=== PATIENT | female | born 2000 | race Caucasian/White ===

== ENCOUNTER 2023-04-09 14:57 | Outpatient (CLI) | payer OTHER, SELFPAY ==
--- NOTE | ~2023-04-09 | XR_ITS ---
EXAMINATION: XR chest 2V DATE: 04/09/2023 15:09 INDICATION: Cough TECHNIQUE: frontal and lateral views of the chest were obtained. COMPARISON: None FINDINGS: The lungs are clear with no focal airspace opacities, pulmonary edema, pleural effusion or pneumothor ax. The cardiomediastinal silhouette is normal. Visualized bones and soft tissues are unremarkable. IMPRESSION: 1. No acute cardiopulmonary disease. Reviewed, dictated and finalized at location A. EMIOLOGIST
== END 2023-04-09 14:58 ==
LOC: MICIMG 15:01
PROVIDERS: PCP Family Medicine; Visit Provider Family Medicine
DX: R05.9 Cough, unspecified (principal)
CPT/HCPCS: 71046

== ENCOUNTER 2024-07-25 08:56 | Outpatient (CLI) | payer OTHER, SELFPAY ==
--- NOTE | 2024-07-25 09:05 | ECG_ITS ---
Test Date: 2024-07-25 09:20:57 Measurements Intervals [place] Rate: 102 P: 64 RI: 164 QRS: 35 QRSD: 93 T: 48 QT: 329 QTc: 430 Interpretive Statements SINUS TACHYCARDIA WITH OCCASIONAL SUPRAVENTRICULAR PREMATURE COMPLEXES LOW QRS VOLTAGE IN PRECORDIAL LEADS [QRS DEFLECTION < 1.0 mV IN CHEST LEADS] No previous ECG available for comparison Electronically Signed On 07-25-2024 10:35:06 CDT by Cedrick Marsh M.D.
== END 2024-07-25 08:57 | disposition home or self-care (01) ==
PROVIDERS: PCP Nurse Practitioner; Visit Provider Nurse Practitioner
DX: R00.2 Palpitations (principal); R00.0 Tachycardia, unspecified
CPT/HCPCS: 93005

== ENCOUNTER 2024-11-21 10:53 | Outpatient (CLI) | payer OTHER, SELFPAY ==
--- NOTE | ~2024-11-21 | CT_ITS ---
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 TECHNIQUE: Computed tomography (CT) of the temporal bones was performed without intravenous contrast. The dose-length product was 224.13 mGy-cm. COMPARISON: None FINDINGS: Orbits are normal. Mild mucoperiosteal thickening the bilateral ethmoid sinuses. Bilateral parotid an d submandibular glands are normal and symmetric. No pathologically enlarged facial or upper cervical lymphadenopathy. Visualized portion of the brain are unremarkable. Visualized upper cervical spine is unremarkable. RIGHT TEMPORAL BONE: The external auditory canal, tympanic membrane, ossicles and scutum are normal. The mastoid air cells , middle ear cavity including Prussak's space are clear. The oval window, vestibule, cochlea, semicir cular canals, internal auditory canal, vestibular aqueduct and course of the facial nerve are normal. The external auditory canal and jugular bulb are unremarkable. LEFT TEMPORAL BONE: The external auditory canal and scutum are normal. Prussak's space is clear. Caudal to Prussak's spac e there is a small amount of soft tissue density extending between the tympanic membrane and the incu s which could be consistent with cholesteatoma. The middle ear cavity is otherwise clear. The oval wi ndow, vestibule, cochlea, semicircular canals, internal auditory canal, vestibular aqueduct and cours e of the facial nerve are normal. The external auditory canal and jugular bulb are unremarkable. Smal l posterior left mastoid effusion. IMPRESSION: 1. Small amount of soft tissue density extending between the left tympanic membrane and the malleus c onsistent with provided history of cholesteatoma. 2. Small left mastoid effusion. Reviewed, dictated and finalized at location A. IMPRESSION: 1. Small amount of soft tissue density extending between the left tympanic memb swapnil and the malleus consistent with provided history of cholesteatoma. 2. Small left mastoid effusion.
== END 2024-11-21 10:54 | disposition home or self-care (01) ==
PROVIDERS: PCP Nurse Practitioner; Visit Provider Otolaryngology Otolaryngology/Facial Plastic Surgery
DX: H71.00 Cholesteatoma of attic, unspecified ear (principal)
CPT/HCPCS: 70480

== ENCOUNTER 2024-12-05 08:09 | Outpatient (CLI) | payer OTHER, SELFPAY | END 2024-12-05 08:10 | disposition home or self-care (01) | LOC: ANHAUDASC 08:10 | PROVIDERS: PCP Nurse Practitioner; Visit Provider Otolaryngology Otolaryngology/Facial Plastic Surgery | DX: H90.12 Conductive hearing loss, unilateral, left ear, with unrestricted hearing on the contralateral side (principal) | CPT/HCPCS: 92557; 92567 ==

== ENCOUNTER 2025-03-19 18:04 | Outpatient (CLI) | payer OTHER, SELFPAY ==
[2025-03-19 23:51] LABS: Thyroid Stimulating Hormone 2.600 uIU/mL (0.465-4.680)
== END 2025-03-19 18:05 | disposition home or self-care (01) ==
LOC: CHSLAB 18:06
PROVIDERS: PCP Nurse Practitioner; Visit Provider Nurse Practitioner
DX: E03.9 Hypothyroidism, unspecified (principal); N91.2 Amenorrhea, unspecified; R53.83 Other fatigue
CPT/HCPCS: 36415; 84443